=== PATIENT | female | born 1935 | race Caucasian/White ===

== ENCOUNTER 2017-11-12 07:35 | Emergency (ER) | payer MEDICARE, BC ==
--- NOTE | 2017-11-12 08:01 | UC ---
Skin Complaint HPI - HPI Summary HPI Summary: rash right hand x 4 days palm of her right hand , + swelling, red, itchy, blistering cannot recall touching anything unusual or new - History of Current Complaint Chief Complaint: UCSkin Time Seen by Provider: 11/12/17 07:44 Stated Complaint: RIGHT HAND COMPLAINT Hx Obtained From: Patient Onset/Duration: Gradual Onset, Lasting Days - 4, Still Present Timing: Constant Onset Severity: Moderate Current Severity: Moderate Location: Discrete - right palm Character: Swelling, Pruritus, Pain, Redness, Raised, Painful Aggravating Factor(s): Touch Alleviating Factor(s): Cold Associated Signs & Symptoms: Positive: Tenderness. Negative: Nausea, Vomiting, Numbness, Thirst, Fever, Chills - Allergy/Home Medications Allergies/Adverse Reactions: Allergies Allergy/AdvReac Type Severity Reaction Status Date / Time No Known Allergies Allergy Verified 11/12/17 07:47 Review of Systems Constitutional: Negative Skin: Rash Eyes: Negative ENT: Negative Respiratory: Negative Is Patient Immunocompromised?: No All Other Systems Reviewed And Are Negative: Yes PMH/Surg Hx/FS Hx/Imm Hx Cardiovascular History: Hypertension GI/ History: Gastroesophageal Reflux Cancer History: Colorectal Cancer - Surgical History Surgical History: Yes Surgery Procedure, Year, and Place: 8 YEARS AGO MALIGNANT POLYPS--COLON RESECTION. - Social History Alcohol Use: Occasionally Substance Use Type: None Smoking Status (MU): Former Smoker - Immunization History Most Recent Influenza Vaccination: current 2016/2017 Physical Exam Triage Information Reviewed: Yes Appearance: Well-Appearing, No Pain Distress, Well-Nourished Vital Signs: Initial Vital Signs Temp 98.7 F 11/12/17 07:40 Pulse 98 11/12/17 07:40 Resp 16 11/12/17 07:40 BP 187/95 11/12/17 07:40 Pulse Ox 100 11/12/17 07:40 Vital Signs Reviewed: Yes Eyes: Positive: Conjunctiva Clear ENT: Positive: Normal ENT inspection, Hearing grossly normal, Pharynx normal Neck exam: Normal Neck: Positive: Supple, Nontender, No Lymphadenopathy Respiratory: Positive: Chest non-tender, Lungs clear, Normal breath sounds Cardiovascular: Positive: RRR, No Murmur, Pulses Normal Abdominal Exam: Normal Skin: Positive: rashes - maculo papulary rash right palm, + erythem, swollen, tendern , blistering Course/Dx - Diagnoses Provider Diagnoses: contact dermatitis Discharge - Discharge Plan Condition: Stable Disposition: HOME Prescriptions: predniSONE TAB* [Deltasone TAB*] 20 mg PO DAILY #5 tab Triamcinolone 0.1% CREAM (NF) [Kenalog 0.1% Cream (NF)] 1 applic TOPICAL BID # 30 gm Patient Education Materials: Contact Dermatitis (ED) Referrals: Alyson Ortiz MD [Primary Care Provider] - 5 Days
[2017-11-12 08:05] VITALS: BP 187/95
== END 2017-11-12 08:01 | disposition home or self-care (01) ==
LOC: UCCORT 07:35
DX: L25.9 Unspecified contact dermatitis, unspecified cause (principal); Z87.891 Personal history of nicotine dependence
CPT/HCPCS: 99212; G0463

== ENCOUNTER 2019-06-28 12:20 | Emergency (ER) | payer MEDICARE, BC ==
[2019-06-28 12:30] VITALS: BP 149/71
--- NOTE | 2019-06-28 13:01 | UC ---
Cardiac HPI - HPI Summary HPI Summary: bilateral mid chest pain started last night. worse with deep breaths. pain moving into back. denies history of clots. history of murmur and high cholesterol no other cardiac disorders. - History of Current Complaint Chief Complaint: UCChestPain Stated Complaint: CHEST DISCOMFORT Time Seen by Provider: 06/28/19 12:58 Hx Obtained From: Patient Onset/Duration: Sudden Onset, Lasting Days - 1 Timing: Constant Initial Severity: Severe Current Severity: Severe Pain Intensity: 7 Chest Pain Location: Mid Sternal Aggravating Factor(s): Deep Breaths Alleviating Factor(s): Rest - Allergy/Home Medications Allergies/Adverse Reactions: Allergies Allergy/AdvReac Type Severity Reaction Status Date / Time No Known Allergies Allergy Verified 06/28/19 12:24 PMH/Surg Hx/FS Hx/Imm Hx Previously Healthy: No GI/ History: Gastroesophageal Reflux - Surgical History Surgical History: Yes Surgery Procedure, Year, and Place: 8 YEARS AGO MALIGNANT POLYPS--COLON RESECTION. - Family History Known Family History: Positive: Hypertension - Social History Alcohol Use: Occasionally Substance Use Type: None Smoking Status (MU): Former Smoker - Immunization History Most Recent Influenza Vaccination: current 2016/2017 Review of Systems All Other Systems Reviewed And Are Negative: Yes Respiratory: Positive: Other - dyspnea Is Patient Immunocompromised?: Yes - age Physical Exam Triage Information Reviewed: Yes Appearance: Well-Appearing, Well-Nourished, Pain Distress Vital Signs: Initial Vital Signs Temp 98.3 F 06/28/19 12:25 Pulse 70 06/28/19 12:25 Resp 20 06/28/19 12:25 BP 149/71 06/28/19 12:25 Pulse Ox 97 06/28/19 12:25 Vital Signs Reviewed: Yes Eye Exam: Normal ENT Exam: Normal Dental Exam: Normal Neck exam: Normal Respiratory Exam: Normal Respiratory: Positive: Chest non-tender, Lungs clear, Normal breath sounds Cardiovascular Exam: Normal Cardiovascular: Positive: RRR, No Murmur, Pulses Normal Abdominal Exam: Normal Abdomen Description: Positive: Nontender, No Organomegaly, Soft Bowel Sounds: Positive: Present Musculoskeletal Exam: Normal Musculoskeletal: Positive: Other: Neurological Exam: Normal Psychological Exam: Normal Skin Exam: Normal Diagnostics - EKG Cardiac Rate: NL Cardiac Rhythm: Sinus: Normal Ectopy: None ST Segment: Normal - reviewed with Dr Kingsley - Assessment/Plan Course Of Treatment: hx obtained, exam performed ,meds reviewed, ekg obtained and reviewed, with Dr Kingsley. she is medicatied for GERD and states the pain is not the same as GERD pain. she recently had a bout of bullous pemphigoid and trated with her steroid cream. Last night the dyspnea started and has moverd from just mid sternum and now wraps around to bothe sides of the back along the ribs. doesnt change with movement, only deep breaths. - Differential Diagnoses - Chest Pain Differential Diagnosis/HQI/PQRI: Acute TN, Angina, GI Disease, Lower Respiratory Infection, Pulmonary Embolism - Clinical Impression Provider Diagnosis: Chest wall pain Discharge - Sign-Out/Discharge Documenting (check all that apply): Patient Departure All imaging exams completed and their final reports reviewed: No Studies - Discharge Plan Condition: Stable Disposition: HOME Prescriptions: predniSONE TAB* [Deltasone 10 MG TAB*] 10 mg PO DAILY #18 tab Patient Education Materials: Chest Wall Pain (ED) Referrals: Alyson Ortiz MD [Primary Care Provider] - Additional Instructions: 1. take the medication as prescribed. 2. REst and heat the area that is causing pain 3. FOllow up if not improving, or you develop worsening symtpoms - Billing Disposition and Condition Condition: STABLE Disposition: Home
== END 2019-06-28 13:44 | disposition home or self-care (01) ==
LOC: UCCORT 12:20
DX: R07.89 Other chest pain (principal); Z87.891 Personal history of nicotine dependence
CPT/HCPCS: 71046; 93005; 99212; G0463

== ENCOUNTER 2019-11-12 13:35 | Emergency (ER) | payer MEDICARE, BC ==
[2019-11-12 13:49] VITALS: BP 133/58
--- NOTE | 2019-11-12 14:31 | ED ---
Lower Extremity - HPI Summary HPI Summary: 84 yr old female with the complaint of left great toe redness. She had redness develop over the past several days after having a pedicure out of town on black Saturday. She has no redness of the dorsum of the foot. No fever or chills. No other complaints. - History of Current Complaint Chief Complaint: UCLowerExtremity Stated Complaint: L TOE COMP Time Seen by Provider: 11/12/19 14:20 Pain Intensity: 7 - Allergies/Home Medications Allergies/Adverse Reactions: Allergies Allergy/AdvReac Type Severity Reaction Status Date / Time No Known Allergies Allergy Verified 11/12/19 13:49 Home Medications: Home Medications Rosuvastatin Calcium [Crestor] 10 mg PO DAILY 11/12/19 [History Confirmed ] PMH/Surg Hx/FS Hx/Imm Hx Endocrine/Hematology History: Denies: Hx Diabetes, Hx Systemic Lupus Erythematosus Cardiovascular History: Reports: Hx Hypertension Denies: Hx Congestive Heart Failure GI History: Reports: Other GI Disorders - HEPATIC CYSTS - COLON RESECTION History: Denies: Hx Renal Disease Musculoskeletal History: Denies: Hx Rheumatoid Arthritis - Cancer History Cancer Type, Location and Year: colon resection from malignant polups Hx Chemotherapy: No - Surgical History Surgery Procedure, Year, and Place: 8 YEARS AGO MALIGNANT POLYPS--COLON RESECTION. Infectious Disease History: No Infectious Disease History: Denies: History Other Infectious Disease, Traveled Outside the [place] in Last 30 Days - Family History Known Family History: Positive: Hypertension - Social History Occupation: Retired Alcohol Use: Occasionally Substance Use Type: Reports: None Smoking Status (MU): Former Smoker Review of Systems Constitutional: Negative Positive: Other - redness left great toe. All Other Systems Reviewed And Are Negative: Yes Physical Exam Triage Information Reviewed: Yes Vital Signs On Initial Exam: Initial Vitals Temp Pulse Resp BP Pulse Ox 97.3 F 70 18 133/58 100 11/12/19 13:43 11/12/19 13:43 11/12/19 13:43 11/12/19 13:43 11/12/19 13:43 Vital Signs Reviewed: Yes Appearance: Positive: Well-Appearing, No Pain Distress Skin: Positive: Other - redness left great toe near paronychia fold. Head/Face: Positive: Normal Head/Face Inspection Eyes: Positive: EOMI ENT: Positive: Normal ENT inspection Neck: Positive: Nontender Respiratory/Lung Sounds: Positive: Clear to Auscultation, Breath Sounds Present Cardiovascular: Positive: RRR. Negative: Murmur Abdomen Description: Negative: Distended Musculoskeletal: Positive: Strength/ROM Intact, Other - redness of the left great toe at the origin of the nail. No fluctuance. Neurological: Positive: Sensory/Motor Intact, Alert, Oriented to Person Place, Time, CN Intact II-III, Normal Gait, Speech Normal Psychiatric: Positive: Normal Diagnostics - Vital Signs Vital Signs Temp Pulse Resp BP Pulse Ox 11/12/19 13:43 97.3 F 70 18 133/58 100 - Laboratory Lab Statement: Any lab studies that have been ordered have been reviewed, and results considered in the medical decision making process. Lower Extremity Course/Dx - Course Course Of Treatment: 84 yr old with paronychia. Rx Keflex 500 mg po tid. - Diagnoses Provider Diagnoses: Paronychia Discharge ED - Sign-Out/Discharge Documenting (check all that apply): Patient Departure All imaging exams completed and their final reports reviewed: No Studies - Discharge Plan Condition: Good Disposition: HOME Prescriptions: Cephalexin CAP* [Keflex CAP*] 500 mg PO TID #30 cap Patient Education Materials: Paronychia (ED) Referrals: Alyson Ortiz MD [Primary Care Provider] - 2 Days Kip Hernandez DPM [Doctor of Podiatric Medicine] - 2 Days - Billing Disposition and Condition Condition: GOOD Disposition: Home
--- OUTSIDE RECORDS SUMMARY | 2019-11-12 14:34 | XMS REPORT | Continuity of Care Document ---
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 Alyson Ortiz MD Onset: 01/28/2012 Vitamin D deficiency Alyson Ortiz MD Onset: 01/28/2012 Colitis, enteritis and gastroenteritis presumed Alyson Ortiz MD Onset: 2011 infectious Disorder of skin and/or subcutaneous tissue Alyson Ortiz MD Onset: 04/21/2013 Psychogenic fatigue Alyson Ortiz MD Onset: 05/11/2013 Social History Type Date Description Comments Sex Unknown Tobacco Use Start: Unknown End: Unknown Former Cigarette Smoker ETOH Use Occasionally consumes alcohol Tobacco Use Start: Unknown End: Unknown Patient is a former smoker Smoking Status Reviewed: 12/26/17 Patient is a former smoker Allergies, Adverse Reactions, Alerts Active Allergies Reaction Severity Comments Date NKDA 02/21/2011 Nka 01/16/2006 Medications Active Medications SIG Qnty Indications Ordering Date Provider Losartan 1 by mouth 90tadevi Ortiz MD 12/09/2018 Potassium/Hydrochlorothiaz every day anila 50-12.5mg Tablets Zoloft 1 by mouth 90tadevi Ortiz MD 03/17/2018 50mg Tablets every night at bedtime Hydrochlorothiazide tab 1 by mouth 90tabs Alyson Ortiz MD 01/22/2018 12.5mg every in the Tablets morning Diltiazem CD 1 by mouth 90dima Ortiz MD 12/10/2017 240mg Caps ER 24HR every day Omeprazole 1 by mouth 180dima Ortiz MD 12/30/[address] twice a day Zetia 1 by mouth 90tadevi Ortiz MD 08/12/2012 10mg Tablets every day Crestor 1 by mouth 90tadevi Ortiz MD 02/01/2009 20mg Tablets every day Vitamin D-3 2 by mouth Unknown 1000Unit Capsules every day Medications Administered in Office Medication SIG Qnty Indications Ordering Provider Date H1N1 Administration-Use Alyson Ortiz MD 12/19/2009 Injection Immunizations CPT Code Status Date Vaccine Lot # [id number] Given 12/09/2018 Pneumovax Polyvalent Inj Im [id number] 38325 Given 01/09/2017 Pneumococcal Conjugate Vaccine 13 Valent For [id number] Intramuscular Use Q2037 Given 09/20/2016 Influenza Vaccine (Fluvirin) 3 Years Of Age Or Older Q2037 Given 10/13/2015 Influenza Vaccine (Fluvirin) 3 Years Of Age Or Older Q2037 Given 09/24/2014 Influenza Vaccine (Fluvirin) 3 Years Of Age Or [id number] Older 52366 Given 03/31/2014 Zostavax Q2037 Given 10/19/2013 Influenza Vaccine (Fluvirin) 3 Years Of Age Or Older Q2037 Given 08/12/2012 Influenza Vaccine (Fluvirin) 3 Years Of Age Or [id number] Older Q2036 Given 08/14/2011 Flulaval [id number] 20525 Given 07/16/2011 Pneumovax Polyvalent Inj Im [id number] 65709 Given 02/21/2011 Zostavax [id number] 90227 Given 08/15/2010 Influenza Vaccine [id number] 67387 Given 09/06/2009 Tetanus,Diphtheria,Adut/Adol Pertussis [id number] 32958 Given 09/05/2009 Influenza Vaccine 56946 Given 09/05/2009 Influenza Vaccine [id number] 76940 Given 10/04/2008 Influenza Vaccine 10160 76812 Given 09/30/2007 Influenza Vaccine [id number] 96772 Given 09/30/2006 Influenza Vaccine [id number] 06649 Given 09/28/2005 Influenza Vaccine [id number] 26307 Given 10/28/2004 [place] [address] Given 12/02/1997 DT Immunization DIP/Tet (History Only) Vital Signs Date Vital Result Comment 10/12/2019 11:36am BP Systolic 121 mmHg BP Diastolic 77 mmHg Heart Rate 65 /min Height 59 inches 4'11" Weight 148.00 lb BMI (Body Mass Index) 29.9 kg/m2 04/13/2019 1:11pm BP Systolic 122 mmHg BP Diastolic 66 mmHg Height 59 inches 4'11" Weight 153.00 lb BMI (Body Mass Index) 30.9 kg/m2 Results Test Acquired Facility Test Result H/L Range Note Date Laboratory test 10/05/2019 [facility] CK 38 U/L Normal 26-[address] [place], [place] [id number] [phone] Hemoglobin A1c 10/05/2019 [facility] Glycohemoglobin 5.3 % Normal 4.2-6.3 [address] (A1c) [place], [place] [id number] [phone] eAG 105 mg/dL .CMP 10/05/2019 [facility] Glucose 108 mg/dL High 74-[address] [place], [place] [id number] [phone] BUN 13 mg/dL Normal 7-18 Creatinine 0.7 mg/dL Normal 0.6-1.3 Glom Filtration Rate, Estimate >60 mL/min >60 If >60 mL/min >60 3 BUN/Creat 18.5 ratio Sodium 138 mmol/L Normal 136-145 Potassium 3.8 mmol/L Normal 3.5-5.1 Chloride 105 mmol/L Normal 98-107 Carbon Dioxide 27 mmol/L Normal 21-32 Anion Gap 6 mEq/L Low 8-16 Calcium 9.2 mg/dL Normal 8.5-10.1 Total Protein 7.1 g/dL Normal 6.4-8.2 Albumin 3.6 g/dL Normal 3.4-5.0 Globulin 3.5 g/dL Normal 1.9-4.3 Alb/Glob 1.0 ratio Bilirubin,Total 0.5 mg/dL Normal 0.2-1.0 Sgot/Ast 12 U/L Low 15-37 4 SGPT/Alt 21 U/L Normal 12-78 Alkaline Phosphatase 64 U/L Normal 45-117 LDL Direct 10/05/2019 [facility] LDL Chol. 102 mg/dL High 0-[address] (Direct) [place] [address] [phone] Comment . 5 1 I35.0 E11.65 J44.9 I48.0 E66.9 2 Elevated levels of HbA1c suggest the need for more aggressive treatment of glycemia. The [place] [employer] recommends that a primary goal of therapy should be a HbA1c of <7% and that physicians should re-evaluate the treatment regimen in patients with HbA1c values consistently >8%. 3 Note: Persistent reduction for 3 months or more in an eGFR <60 mL/min/1.73 m2 defines CKD. Patients with eGFR values >/=60 mL/min/1.73 m2 may also have CKD if evidence of persistent proteinuria is present. The original MDRD equation for estimated GFR is not valid for patients less than 18 years of age. Additional information may be found at www.kdoqi.org. 4 Values below the stated reference ranges of AST and ALT can be seen in normal populations. Clinical correlation is suggested. 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 I11.9 Hypertensive heart disease without heart failure E78.5 Hyperlipidemia, unspecified 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 F41.9 Anxiety disorder, unspecified L30.9 Dermatitis, unspecified E66.9 Obesity, unspecified Assessments Date Code Description Provider 04/13/2019 I35.0 Nonrheumatic aortic (valve) stenosis Alyson Ortiz MD 04/13/2019 I11.9 Hypertensive heart disease without heart failure Alyson Ortiz MD 04/13/2019 E78.5 Hyperlipidemia, unspecified Alyson Ortiz MD 04/13/2019 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
--- OUTSIDE RECORDS SUMMARY | 2019-11-12 14:35 | XMS REPORT | Continuity of Care Document ---
:1935 External Reference #:[id number] Author Name Alyson Ortiz MD (transmitted by agent of provider Vicenta Jackson) Address [address] [place] [address] Problems Active Problems Provider Date Osteochondropathy Alyson [...] CPT Code Status Date Vaccine Lot # [id number] Given 12/09/2018 Pneumovax Polyvalent Inj Im [id number] 49775 Given 01/09/2017 Pneumococcal Conjugate Vaccine 13 Valent For [id number] Intramuscular Use Q2037 Given 09/20/2016 Influenza Vaccine (Fluvirin) 3 Years Of Age Or Older Q2037 Given 10/13/2015 Influenza Vaccine (Fluvirin) 3 Years Of Age Or Older Q2037 Given 09/24/2014 Influenza Vaccine (Fluvirin) 3 Years Of Age Or [id number] Older 46168 Given 03/31/2014 Zostavax Q2037 Given 10/19/2013 Influenza Vaccine (Fluvirin) 3 Years Of Age Or Older Q2037 Given 08/12/2012 Influenza Vaccine (Fluvirin) 3 Years Of Age Or [id number] Older Q2036 Given 08/14/2011 Flulaval [id number] 15471 Given 07/16/2011 Pneumovax Polyvalent Inj Im [id number] 62104 Given 02/21/2011 Zostavax [id number] 04944 Given 08/15/2010 Influenza Vaccine [id number] 93027 Given 09/06/2009 Tetanus,Diphtheria,Adut/Adol Pertussis [id number] 06104 Given 09/05/2009 Influenza Vaccine 08149 Given 09/05/2009 Influenza Vaccine [id number] 67101 Given 10/04/2008 Influenza Vaccine [id number] 22848 Given 09/30/2007 Influenza Vaccine [id number] 66617 Given 09/30/2006 Influenza Vaccine [id number] 78232 Given 09/28/2005 Influenza Vaccine [id number] 77906 Given 10/28/2004 [place] [address] Given 12/02/1997 DT Immunization DIP/Tet (History Only) [...] H/L Range Note Date Laboratory test 10/05/2019 [facility] CK 38 U/L Normal 26-192 [address] [place], [place] [id number] [phone] Hemoglobin A1c 10/05/2019 [facility] Glycohemoglobin 5.3 % Normal 4.2-6.3 [address] (A1c) [place], [place] [address] [phone] eAG 105 mg/dL .CMP 10/05/2019 [facility] Glucose 108 mg/dL High 74-[address] [place], [place] [address] [phone] BUN 13 mg/dL Normal 7-18 Creatinine 0.7 [...] 64 U/L Normal 45-117 LDL Direct 10/05/2019 [facility] LDL Chol. 102 mg/dL High 0-[address] (Direct) [place] [address] [phone] Comment . 5 1 I35.0 E11.65 J44.9 I48.0 E66.9 2 Elevated levels of HbA1c suggest the need for more aggressive treatment of glycemia. The [place] [employer] recommends that a primary goal [...] suggested. 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
== END 2019-11-12 14:43 | disposition home or self-care (01) ==
LOC: UCCORT 13:35
DX: L03.032 Cellulitis of left toe (principal); Z87.891 Personal history of nicotine dependence
CPT/HCPCS: 99212; G0463